=== PATIENT | male | born 1945 | race Caucasian/White ===

== ENCOUNTER 2016-11-18 07:11 | Day surgery (SDC) | payer OTHER ==
[2016-11-18] MEDS ORDERED: LACTATED RINGERS 1,000 ML IV SCH (07:30)
[2016-11-18] MEDS ORDERED: PROPOFOL 40 ML IV ONE (07:49)
--- NOTE | 2016-11-20 12:54 | SURGPATH ---
[facility] [address] [place] [id number] Patient Name: MATIAS FAULKNER MR#: [id number] : 1945 Gender: M Specimen #: [id number] Collected: 11/18/2016 Received: 11/19/2016 Reported: 11/20/2016 Submitting Phys: ESAU SHAW Copy To Phys: [facility] NASREEN ECHEVARRIA Clinical History / Pre-Operative Diagnosis: DIARRHEA; UNSPECIFIED WEIGHT LOSS; RULE OUT COLITIS Specimen Source / Surgical Procedure Performed: #1-CECAL; #2-SIGMOID AT 30 CM Interpretation: 1.-2. CECAL AND SIGMOID COLON AND BIOPSIES: - FOCALLY INCREASED INTRAEPITHELIAL LYMPHOCYTES IDENTIFIED (SEE MICROSCOPIC DESCRIPTION AND COMMENT). Comment: The presence of focally increased intraepithelial lymphocytes raises the possibility of lymphocytic colitis; however, not all of the diagnostic histologic features are present. A resolving self-limited colitis would be in the differential diagnosis. Clinical correlation is suggested. Electronically Signed Out Ayaka Hurley M.D. Gross Description: #1 The specimen is received in a formalin filled container labeled with the patient's name and "cecal". Two yarbrough biopsies are 0.3 and 0.4 cm. Totally embedded in cassette #1. #2 The specimen is received in a formalin filled container labeled with the patient's name and "sigmoid at 30 cm". Two yarbrough biopsies are 0.3 and 0.5 cm. Totally embedded in cassette #2. Ian Vega Microscopic Description: 1.-2. Sections of the cecal and sigmoid colon biopsies are similar, showing fragments of benign colonic mucosa with straight and parallel crypts. The lamina propria is slightly hypercellular with a mixture of plasma cells, lymphocytes and occasional eosinophils. Focally, intraepithelial lymphocytes are slightly increased in number within the surface columnar epithelium; however, there is no evidence of epithelial disruption. Occasional lymphocytes are also noted within the crypt epithelium but the number is not significantly increased. No acute inflammation is identified. No granulomas are seen. There is no evidence of crypt architectural distortion. 1: 21154 2: 30370 R19.7
== END 2016-11-18 09:30 | disposition home or self-care (01) ==
LOC: SDC 07:11
PROVIDERS: ATTEND Internal Medicine Gastroenterology
DX: K51.90 Ulcerative colitis, unspecified, without complications (principal); F17.200 Nicotine dependence, unspecified, uncomplicated